=== PATIENT | male | born 2000 | race Caucasian/White ===

== ENCOUNTER 2020-03-24 10:26 | Emergency (ER) | payer OTHER ==
[2020-03-24 10:31] VITALS: BP 109/68; PULSE 65; TEMP 97.7; BMI 24.4
[2020-03-24] MEDS ORDERED: DIPHTH,PERTUSS(ACELL),TET 0.5 ML DISP.SYRIN IM ONE ×2 (11:04→11:08)
--- NOTE | 2020-03-24 11:30 | PDOC ---
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 Past History - Medical History Allergies/Adverse Reactions: Allergies Allergy/AdvReac Type Severity Reaction Status Date / Time No Known Allergies Allergy Verified 03/24/20 10:28 COPD: No - Immunization History Immunization Up to Date: No - Psycho-Social/Smoking History Smoking History: Current every day smoker Information on smoking cessation initiated: No - Substance Abuse Hx (Audit-C & DAST Scrn) How often the patient has a drink containing alcohol: Never Score: In Men: 4 or > Positive; In Women: 3 or > Positive: 0 Screen Result (Pos requires Nsg. Audit-10AR): Negative In the last yr the pt used illegal drug/Rx for NonMed reason: No Score: Yes response is considered Positive: 0 Screen Result (Positive result requires Nsg. DAST-10): Negative Review of Systems - Review of Systems Musculoskeletal: Yes: See HPI *Physical Exam - Vital Signs Last Vital Signs Temp Pulse Resp BP Pulse Ox 97.7 F 65 20 109/68 100 03/24/20 10:29 03/24/20 10:29 03/24/20 10:29 03/24/20 10:29 03/24/20 10:29 - Physical Exam 03/24/20 11:26 There is approximately a 1 cm obliquely oriented laceration on the radial aspect of the left middle finger just proximal to the DIPJ. FDS and FDP work independently in all fingers there are no gross sensorimotor deficits neurovascular intact. Capillary refill is less than 2 seconds. ED Treatment Course - Medications Given in the ED: ED Medications Discontinued Medications Generic Name Dose Route Start Last Admin Trade Name Freq PRN Reason Stop Dose Admin Diphtheria/Tetanus/Acell Pertussis 0.5 ml 03/24/20 11:04 03/24/20 11:10 Boostrix - IM 03/24/20 11:05 0.5 ml .ONCE ONE Administration Medical Decision Making - Medical Decision Making 03/24/20 11:27 Using 5 cc of 1% lidocaine without epinephrine a digital block was introduced in the left middle finger this was tolerated well. The wound was copiously irrigated, explored to its base in a bloodless field without identification of a foreign body. Copiously irrigated again 3 interrupted 4-0 nylon simple sutures were used and a dry sterile dressing was placed. This was tolerated well Patient was given laceration instructions and he understands I have reviewed the pathophysiology with the patient. They are in agreement with the treatment plan all questions were answered to their satisfaction. Understanding for follow-up without fail was also conveyed to the patient. Again they are in agreement. Discharge - Discharge Information Problems reviewed: Yes Clinical Impression/Diagnosis: Laceration of finger of left hand Condition: Stable Disposition: HOME - Admission No - Follow up/Referral Referrals: Lauro Lugo MD [Staff Physician] - - Patient Discharge Instructions Additional Instructions: Please keep the dressing on for the next 48 hours. After 48 hours you may remove the dressing wash the area with soap and water and leave it open to air. If you must work please cover the area with a dry sterile dressing such as a large Band-Aid. Keep the area open to air as much as possible. Return to the emergency room for any worsening symptoms or concern for infection such as redness, swelling, increasing pain, or drainage. Other than that sutures out in 10 days Tylenol and Motrin as directed for pain. - Post Discharge Activity Work/Back to School Note: Back to Work
== END 2020-03-24 12:00 | disposition home or self-care (01) ==
LOC: JERFT 10:26
PROC: 3E0234Z Introduction of Serum, Toxoid and Vaccine into Muscle, Percutaneous Approach (ICD-10-PCS; principal; 2020-03-24)
DX: S61.213A Laceration without foreign body of left middle finger without damage to nail, initial encounter (principal)
CPT/HCPCS: 90715; 99284-25

== ENCOUNTER 2020-10-02 09:20 | Emergency (ER) | payer OTHER ==
[2020-10-02 09:30] VITALS: BP 131/71; PULSE 63; TEMP 97.8; BMI 26.6
[2020-10-02 10:59] LABS: BASO % 0.9 % (0-2.0); EOS % 3.4 % (0-4.5); HEMATOCRIT 46.4 % (35.4-49); HEMOGLOBIN 16.2 GM/dL (11.7-16.9); MCH 31.1 pg (25.7-33.7); MEAN CELL VOLUME 88.9 fl (80-96); MEAN PLT VOLUME 7.5 fl (7.5-11.1); MONO % 11.7 % (3.8-10.2); PLATELET COUNT 288 K/MM3 (134-434); RBC 5.22 M/mm3 (4.00-5.60); RDW 13.4 % (11.9-15.9); WHITE BLOOD COUNT 4.1 K/mm3 (4.0-10.0)
[2020-10-02 11:16] LABS: CHLORIDE 104 mmol/L (98-107); POTASSIUM 4.4 mmol/L (3.5-5.1); SODIUM 140 mmol/L (136-145)
[2020-10-02 11:18] LABS: ALBUMIN 4.6 g/dl (3.4-5.0); ANION GAP 8 MMOL/L (8-16); BLOOD UREA NITROGEN 14.9 mg/dL (7-18); CALCIUM 9.8 mg/dL (8.5-10.1); CO2 28 mmol/L (21-32); GLUCOSE,RANDOM 98 mg/dL (74-106)
[2020-10-02 11:21] LABS: SGPT/ALT 101 U/L (13-61)
[2020-10-02 11:22] LABS: CREATININE 1.1 mg/dL (0.55-1.3); SGOT/AST 116 U/L (15-37)
[2020-10-02 11:23] LABS: BILIRUBIN,TOTAL 0.6 mg/dL (0.2-1); TOT PROT 7.8 g/dl (6.4-8.2)
[2020-10-02 11:24] LABS: ALK PHOS 77 U/L (45-117)
== END 2020-10-02 12:12 | disposition home or self-care (01) ==
LOC: JERFT 09:20
DX: R07.9 Chest pain, unspecified (principal)
CPT/HCPCS: 36415; 71046-TC-FY; 80053; 82550; 82553; 84484; 85025; 93005; 93010; 99284-25

== ENCOUNTER 2020-11-16 03:32 | Emergency (ER) | payer OTHER ==
[2020-11-16 03:41] VITALS: BP 120/72; PULSE 76; TEMP 97.8; BMI 25.0
== END 2020-11-16 05:53 | disposition left against medical advice (07) ==
LOC: JER 03:32
DX: R07.9 Chest pain, unspecified (principal)
CPT/HCPCS: 71046-TC-FY; 93005; 93010; 99284-25

== ENCOUNTER 2021-01-22 13:06 | Emergency (ER) | payer OTHER ==
[2021-01-22 13:13] VITALS: TEMP 98.7; BMI 25.4
[2021-01-22] MEDS ORDERED: FAMOTIDINE 20 MG/50 ML IVPB 20 MG/50 ML MG IVPB ONE ×2 (13:41→13:43)
[2021-01-22 13:49] LABS: BASO % 1.4 % (0-2.0); EOS % 3.4 % (0-4.5); HEMATOCRIT 45.4 % (35.4-49); HEMOGLOBIN 16.1 GM/dL (11.7-16.9); LYMPH % 49.2 % (8-40); MCH 30.9 pg (25.7-33.7); MCHC 35.4 g/dl (32.0-35.9); MEAN CELL VOLUME 87.2 fl (80-96); MEAN PLT VOLUME 7.3 fl (7.5-11.1); MONO % 9.9 % (3.8-10.2); NEUT % 36.1 % (42.8-82.8); PLATELET COUNT 287 K/MM3 (134-434); RDW 13.1 % (11.9-15.9); WHITE BLOOD COUNT 4.3 K/mm3 (4.0-10.0)
[2021-01-22 14:15] LABS: CHLORIDE 102 mmol/L (98-107); SODIUM 139 mmol/L (136-145)
[2021-01-22 14:18] LABS: ALBUMIN 4.5 g/dl (3.4-5.0); ANION GAP 8 MMOL/L (8-16); BLOOD UREA NITROGEN 11.5 mg/dL (7-18); CALCIUM 9.9 mg/dL (8.5-10.1); CO2 28 mmol/L (21-32); GLUCOSE,RANDOM 81 mg/dL (74-106); LIPASE 80 U/L (73-393)
[2021-01-22 14:21] LABS: CREATININE 0.9 mg/dL (0.55-1.3); SGOT/AST 22 U/L (15-37); SGPT/ALT 28 U/L (13-61)
[2021-01-22 14:22] LABS: BILIRUBIN,TOTAL 0.5 mg/dL (0.2-1); TOT PROT 7.6 g/dl (6.4-8.2)
[2021-01-22 14:24] LABS: ALK PHOS 89 U/L (45-117)
[2021-01-22 16:24] VITALS: BP 120/76; PULSE 79
== END 2021-01-22 16:24 | disposition home or self-care (01) ==
LOC: JERFT 13:06
PROC: 3E033GC Introduction of Other Therapeutic Substance into Peripheral Vein, Percutaneous Approach (ICD-10-PCS; principal; 2021-01-22)
DX: R07.89 Other chest pain (principal); K21.9 Gastro-esophageal reflux disease without esophagitis
CPT/HCPCS: 36415; 71046-TC-FY; 76705-TC; 80053; 82550; 83690; 84484; 85025; 99285-25

== ENCOUNTER 2021-04-15 15:10 | Emergency (ER) | payer OTHER ==
[2021-04-15 15:44] VITALS: BP 138/72; PULSE 67; TEMP 98.1; BMI 25.4
== END 2021-04-15 17:26 | disposition home or self-care (01) ==
LOC: JERFT 15:10
DX: L30.9 Dermatitis, unspecified (principal)
CPT/HCPCS: 99281-25

== ENCOUNTER 2022-01-31 02:41 | Emergency (ER) | payer OTHER ==
[2022-01-31 02:51] VITALS: BP 119/75; PULSE 93; TEMP 98.2; BMI 26.4
== END 2022-01-31 06:18 | disposition home or self-care (01) ==
LOC: JER 02:41
PROC: 3E033NZ Introduction of Analgesics, Hypnotics, Sedatives into Peripheral Vein, Percutaneous Approach (ICD-10-PCS; principal; 2022-01-31)
DX: M79.5 Residual foreign body in soft tissue (principal); S61.411A Laceration without foreign body of right hand, initial encounter
CPT/HCPCS: 73130-TC-RT-FY; 99284-25

== ENCOUNTER 2022-02-25 17:02 | Emergency (ER) | payer OTHER ==
[2022-02-25 17:20] VITALS: BMI 26.4
[2022-02-25] MEDS ORDERED: ONDANSETRON 4 MG/2 ML VIAL IVPUSH ONE (17:43)
[2022-02-25] MEDS ORDERED: MECLIZINE HCL 25 MG TABLET (FP) PO ONE (17:49)
[2022-02-25] MEDS ORDERED: MECLIZINE HCL 25 MG TABLET (FP) ONE (17:56)
[2022-02-25] MEDS ORDERED: ONDANSETRON 4 MG/2 ML VIAL ONE ×2 (17:56→19:55)
[2022-02-25 18:51] LABS: BASO % 0.6 % (0-2.0); EOS % 1.7 % (0-4.5); HEMATOCRIT 46.3 % (35.4-49); HEMOGLOBIN 15.9 GM/dL (11.7-16.9); LYMPH % 28.2 % (8-40); MCH 30.2 pg (25.7-33.7); MCHC 34.4 g/dl (32.0-35.9); MEAN CELL VOLUME 87.9 fl (80-96); MEAN PLT VOLUME 7.9 fl (7.5-11.1); MONO % 8.8 % (3.8-10.2); NEUT % 60.7 % (42.8-82.8); PLATELET COUNT 253 10^3/uL (134-434); RBC 5.26 M/mm3 (4.00-5.60); RDW 13.3 % (11.9-15.9); WHITE BLOOD COUNT 7.9 K/mm3 (4.0-10.0)
[2022-02-25 19:00] LABS: INR 1.02 (0.83-1.09); PROTHROMBIN TIME (PATIENT) 11.7 SEC (9.7-13.0)
[2022-02-25 19:02] LABS: ACTIVATED PTT 30.7 SECONDS (25.2-36.5)
[2022-02-25] MEDS ORDERED: METOCLOPRAMIDE HCL INJECTION 10 MG/2 ML VIAL IVPUSH ONE (19:19)
[2022-02-25] MEDS ORDERED: METOCLOPRAMIDE HCL INJECTION 10 MG/2 ML VIAL ONE (19:26)
[2022-02-25] MEDS ORDERED: morphine SULFATE 4 MG/ML VIAL ONE (19:55)
[2022-02-25 19:57] LABS: CALCIUM 9.8 mg/dL (8.5-10.1)
[2022-02-25 19:58] VITALS: BP 135/66; PULSE 78; TEMP 98
[2022-02-25 19:58] LABS: ALBUMIN 4.7 g/dl (3.4-5.0)
[2022-02-25 20:03] LABS: BILIRUBIN,TOTAL 0.4 mg/dL (0.2-1)
[2022-02-25] MEDS ORDERED: levETIRAcetam 500 MG/5 ML INJECTION VIAL IVPB ONE ×2 (20:15→20:19)
[2022-02-25] MEDS ORDERED: ACETAMINOPHEN 1000 MG/100 ML BAG IVPB ONE (20:15)
[2022-02-25] MEDS ORDERED: ACETAMINOPHEN INJECTION 100 ML IVPB ONE (20:18)
== END 2022-02-25 20:29 | disposition short-term general hospital (02) ==
LOC: JER 17:02
PROC: 3E033GC Introduction of Other Therapeutic Substance into Peripheral Vein, Percutaneous Approach (ICD-10-PCS; principal; 2022-02-25)
DX: I62.9 Nontraumatic intracranial hemorrhage, unspecified (principal)
CPT/HCPCS: 36415; 70450-TC; 80053; 85025; 85610; 85730; 93005; 93010; 99291; C9803-CS; U0003; U0005

== ENCOUNTER 2023-05-12 18:20 | Emergency (ER) | payer OTHER ==
[2023-05-12 18:40] VITALS: RESP 17; BMI 27.7
[2023-05-12 20:18] VITALS: BP 128/77; PULSE 62; TEMP 97.9
== END 2023-05-12 20:34 | disposition home or self-care (01) ==
LOC: JER 18:20
DX: S80.211A Abrasion, right knee, initial encounter (principal); S50.311A Abrasion of right elbow, initial encounter; M25.521 Pain in right elbow; M25.561 Pain in right knee; V23.49XA Other motorcycle driver injured in collision with car, pick-up truck or van in traffic accident, initial encounter; W22.8XXA Striking against or struck by other objects, initial encounter
CPT/HCPCS: 70450-TC; 71045-TC-FY; 73070-TC-RT-FY; 73560-TC-RT-FY; 99284-25